=== PATIENT | female | born 1960 | race Caucasian/White ===

== ENCOUNTER 2020-08-24 04:18 | Day surgery (SDC) | payer OTHER ==
[2020-08-23 12:02] VITALS: BMI 33.5
--- NOTE | 2020-08-24 08:26 | HP ---
History & Physical Update - History History: No Change - Physical Physical: No Change - Assessment Assessment: No Change - Plan Plan: No Change
--- NOTE | 2020-08-24 08:26 | OP ---
Operative Note - Note: Operative Date: 08/24/20 Pre-Operative Diagnosis: L renal calculus Operation: ESWL L Findings: 6 mm radiolucent L UP renal calculus Post-Operative Diagnosis: Same as Pre-op Surgeon: Jagdeep Garrison Anesthesiologist/TEXTILE SLITTING MACHINE OPERATOR: Priyanka Quevedo Anesthesia: MAC Estimated Blood Loss (mls): 0 Operative Report Dictated: Yes
[2020-08-24] MEDS ORDERED: MIDAZOLAM HCL 2 MG/2 ML SINGLE DOSE VIAL ONE (08:43)
--- NOTE | 2020-08-24 09:23 | OP ---
DATE OF OPERATION: 08/24/2020 PREOPERATIVE DIAGNOSIS: Left renal calculus. POSTOPERATIVE DIAGNOSIS: Left renal calculus. PROCEDURE: Extracorporeal shock wave lithotripsy left. SURGEON: Jagdeep Morales MD BULLET SLUG CASTING MACHINE OPERATOR: None. ANESTHESIA: IV sedation. ANESTHESIOLOGIST: Priyanka Quevedo CRNA SPECIMENS: None. CULTURES: None. DRAINS: None. ESTIMATED BLOOD LOSS: None. COMPLICATION: None. DESCRIPTION OF PROCEDURE: Patient was brought into the operating room, placed on the operating table in the supine position. After administration of intravenous sedation, patient was positioned over the treatment head and under ultrasound guidance 6-mm left upper pole renal calculus was identified, targeted, delivered 2500 shocks to maximum kilovoltage with excellent fragmentation. She tolerated the procedure well, was transferred to the recovery room in stable condition. JAGDEEP MORALES M.D. [id number]
[2020-08-24 09:33] VITALS: TEMP 96.4
[2020-08-24 10:44] VITALS: BP 142/75; PULSE 68
== END 2020-08-24 10:44 | disposition home or self-care (01) ==
LOC: JASU-SURG 04:18
PROVIDERS: ATTEND Urology
PROC: 0TF4XZZ Fragmentation in Left Kidney Pelvis, External Approach (ICD-10-PCS; principal; 2020-08-24 08:45)
DX: N20.0 Calculus of kidney (principal)

== ENCOUNTER 2021-05-17 04:29 | Day surgery (SDC) | payer OTHER ==
[2021-05-05 11:53] VITALS: BMI 35.2
[2021-05-17] MEDS ORDERED: PROPOFOL 20 ML ONE ×2 (07:52)
[2021-05-17] MEDS ORDERED: MIDAZOLAM HCL 2 MG/2 ML SINGLE DOSE VIAL ONE (07:52)
[2021-05-17] MEDS ORDERED: LIDOCAINE HCL/PF 2% SDV 5ML VIAL ONE (07:53)
[2021-05-17] MEDS ORDERED: KETOROLAC TROMETHAMINE 30 MG/1 ML VIAL ONE (07:53)
[2021-05-17 11:09] VITALS: BP 122/69; PULSE 74; TEMP 97.4
== END 2021-05-17 10:30 | disposition home or self-care (01) ==
LOC: JASU-SURG 04:29
PROVIDERS: ATTEND Urology
PROC: 0TF3XZZ Fragmentation in Right Kidney Pelvis, External Approach (ICD-10-PCS; principal; 2021-05-17 08:00)
DX: N20.0 Calculus of kidney (principal)

== ENCOUNTER 2021-08-23 04:10 | Day surgery (SDC) | payer OTHER ==
[2021-08-19 10:59] VITALS: BMI 34.5
[2021-08-23] MEDS ORDERED: KETOROLAC TROMETHAMINE 30 MG/1 ML VIAL ONE (07:29)
[2021-08-23] MEDS ORDERED: LIDOCAINE HCL/PF 2% SDV 5ML VIAL ONE (07:29)
[2021-08-23] MEDS ORDERED: MIDAZOLAM HCL 2 MG/2 ML SINGLE DOSE VIAL ONE (07:32)
[2021-08-23] MEDS ORDERED: KETAMINE HCL 200 MG/20 ML VIAL ONE (07:32)
[2021-08-23 08:53] VITALS: TEMP 97.1
[2021-08-23 09:58] VITALS: BP 140/76; PULSE 66
== END 2021-08-23 10:00 | disposition home or self-care (01) ==
LOC: JASU-SURG 04:10
PROVIDERS: ATTEND Urology
PROC: 0TF4XZZ Fragmentation in Left Kidney Pelvis, External Approach (ICD-10-PCS; principal; 2021-08-23 08:00)
DX: N20.0 Calculus of kidney (principal)